=== PATIENT | male | born 1975 | race Two or more races ===

== ENCOUNTER 2019-12-18 05:27 | Inpatient (IN) | payer OTHER, SELFPAY ==
[~2019-12-18] VITALS: Ht 152.4 cm; Wt 68.5 kg
--- NOTE | 2019-12-18 05:44 | NUR ---
Patient BIB [facility] c/o body aches, sore throat, cough, and chest pain with movement. Per EMS, he was here on Sunday for the same and was given a RX which was not filled. Patient is in obvious discomfort. Respirations even and unlabored.
[2019-12-18] MEDS ORDERED: ACETAMINOPHEN 500 MG TABLET ONE (05:47)
[2019-12-18] MEDS ORDERED: PLEASE ENTER ALLERGIES MC SCH (06:00)
[2019-12-18] MEDS ORDERED: ACETAMINOPHEN 500 MG TABLET PO ONE (06:00)
[2019-12-18 06:19] LABS: RAPID INFLUENZA A Negative (Negative)
[2019-12-18 06:20] LABS: RAPID INFLUENZA B Negative (Negative)
--- NOTE | 2019-12-18 06:47 | NUR ---
Tylenol ordered per jan. Patient refused half of Tylenol. 500 mg admin
--- NOTE | 2019-12-18 06:48 | NUR ---
report received from marcos lora.
[2019-12-18] MEDS ORDERED: SODIUM CHLORIDE 0.9% 1,000ML IVBOLUS ONE ×2 (07:30→09:00)
[2019-12-18] MEDS ORDERED: CEFTRIAXONE PMX 1GM/50ML 50 ML IV ONE (07:30)
[2019-12-18] MEDS ORDERED: AZITHROMYCIN 500 MG in SODIUM CHLORIDE 0.9% 250 ML IV ONE (07:30)
--- NOTE | 2019-12-18 07:32 | NUR ---
NS INFUSING AT THIS TIME. PT TOLERATED WELL.
[2019-12-18] MEDS ORDERED: CEFTRIAXONE PMX 1GM/50ML 50 ML ONE (07:34)
[2019-12-18 07:38] LABS: MEAN CORPUSCULAR HEMOGLOBIN 30.3 pg (27.5-34.5); MEAN CORPUSCULAR HGB CONC 33.5 g/dL (33.2-36.2); MEAN CORPUSCULAR VOLUME 90.6 fL (81-97); MEAN PLATELET VOLUME 9.4 fL (7.4-10.4); PLATELET COUNT 162 x10^3/uL (130-400); RED BLOOD COUNT 4.86 x10^6/uL (4.38-5.82); RED CELL DISTRIBUTION WIDTH 12.7 % (9.4-14.8)
--- NOTE | 2019-12-18 07:40 | NUR ---
abx infusing after blood culture x 2. pt tolerated well.
[2019-12-18 07:48] LABS: ALBUMIN 2.5 g/dL (3.4-5.0); ANION GAP 10 mmol/L (5-15); CALCIUM 8.3 mg/dL (8.5-10.1); CHLORIDE 99 mmol/L (98-107); CREATININE 1.14 mg/dL (0.7-1.3)
[2019-12-18 08:06] LABS: MD YES
[2019-12-18 08:07] LABS: BAND#(MANUAL) 0.74 x10^3/uL; BANDS%(MANUAL) 5 % (0-7); LYMPHS% (MANUAL) 2 % (22-44); MONOS#(MANUAL) 0.44 x10^3/uL (0.3-2.7); MONOS% (MANUAL) 3 % (2-9); SEG#(MANUAL) 13.32 x10^3/uL (1.8-6.8); SEGS% (MANUAL) 90 % (42-75)
[2019-12-18 08:08] LABS: <RBC MORPHOLOGY> NORMAL
[2019-12-18 08:09] LABS: <PLATELET ESTIMATE> ADEQUATE; <PLT MORPHOLOGY> NORMAL PLT MORPH
[2019-12-18] MEDS ORDERED: METOCLOPRAMIDE 5 MG/ML, 2ML ONE (08:09)
[2019-12-18] MEDS ORDERED: FAMOTIDINE 20 MG/2 ML ONE (08:10)
--- NOTE | 2019-12-18 08:59 | NUR ---
2nd abx and 2l ns bolus infusing at this time. pt tolerated well. hospitalist at bedside at this time.
[2019-12-18] MEDS: SODIUM CHLORIDE 0.9% 1,000 ML IV SCH ×3 (09:30→22:32)
--- NOTE | 2019-12-18 09:46 | NUR ---
bedside commode at bedside per pt's request.
--- NOTE | 2019-12-18 10:09 | NUR ---
pt's friend Bandar [phone]
--- NOTE | 2019-12-18 10:15 | NUR ---
report given to trisha lora. all questions answered.
[2019-12-18] MEDS ORDERED: AZITHROMYCIN 500 MG TABLET ONE (10:33)
--- NOTE | 2019-12-18 10:54 | NUR ---
central line cart at bedside.edmd notified.
--- NOTE | 2019-12-18 10:57 | NUR ---
ns 150ml/hr infusing at this time. pt tolerated well. edmd at bedside to start central line.
--- NOTE | 2019-12-18 11:06 | NUR ---
central line placed by edmd. pt tolerated well.
--- NOTE | 2019-12-18 11:40 | NUR ---
CENTRAL LINE CONCENT FORM/PAPERWORKS GIVEN TO EDMD AND COIL CUTTER AT THIS TIME.
[2019-12-18] MEDS ORDERED: ENOXAPARIN 40 MG/0.4 ML ONE (11:42)
[2019-12-18] MEDS: ENOXAPARIN 40 MG/0.4 ML SQ SCH (11:44)
--- NOTE | 2019-12-18 11:45 | NUR ---
pt medicated per emar. pt tolerated well.
--- NOTE | 2019-12-18 12:30 | NUR ---
Lunch break RN: Urinal emptied, 1000cc light yellow urine output. Pt resting w/ eyes closed, awakens to V, requests & given po water.
--- NOTE | 2019-12-18 12:52 | NUR ---
this rn called for report but they're busy at this time and they are not able to take this pt at this time. throughput rn notified.
--- NOTE | 2019-12-18 13:44 | NUR ---
PT'S SLEEPING IN [facility]. RESPS EVEN AND UNLABORED. ALL MONITORS IN PLACE. CALL LIGHT WITHIN REACH. URINAL AT BEDSIDE.
--- NOTE | 2019-12-18 14:07 | NUR ---
pt resting in [facility]. pt's aox4. resps even and unlabored. all monitors in place. call light within reach. nsr on clinical research monitor rate 80's at this time.
--- NOTE | 2019-12-18 14:11 | NUR ---
PT'S BP 94/58(MAP 68) AT THIS TIME. EDMD NOTIFIED AND STATES"IF PT'S MAP IS BELOW 65, THEN PT NEEDS PRESSOR." WILL CONTINUE TO MONITOR.
--- NOTE | 2019-12-18 15:01 | NUR ---
report given to vincent lora. all questions answered.
[2019-12-18] MEDS ORDERED: NOREPINEPHRINE 8 MG in SODIUM CHLORIDE 0.9% 242 ML IV PRN (18:30)
[2019-12-19] MEDS: SODIUM CHLORIDE 0.9% 1,000 ML IV SCH ×3 (05:16→20:14)
[2019-12-19 05:28] LABS: CHLORIDE 110 mmol/L (98-107)
[2019-12-19 05:29] LABS: MEAN CORPUSCULAR HEMOGLOBIN 30.1 pg (27.5-34.5); MEAN CORPUSCULAR HGB CONC 33.7 g/dL (33.2-36.2); MEAN CORPUSCULAR VOLUME 89.3 fL (81-97); MEAN PLATELET VOLUME 9.6 fL (7.4-10.4); PLATELET COUNT 178 x10^3/uL (130-400); RED BLOOD COUNT 4.11 x10^6/uL (4.38-5.82); RED CELL DISTRIBUTION WIDTH 13.1 % (9.4-14.8)
[2019-12-19 05:33] LABS: ANION GAP 8 mmol/L (5-15); CALCIUM 7.4 mg/dL (8.5-10.1); CREATININE 0.62 mg/dL (0.7-1.3)
[2019-12-19 05:47] LABS: BASOPHILS # (AUTO) 0.02 x10^3/uL (0-0.1); BASOPHILS % (AUTO) 0 % (0-1); EOSINOPHILS # (AUTO) 0.03 x10^3/uL (0-0.4); EOSINOPHILS % (AUTO) 0 % (1-7); LYMPHOCYTES # (AUTO) 0.68 x10^3/uL (1-3.4); LYMPHOCYTES % (AUTO) 6 % (22-44); MD SCAN; MONOCYTES # (AUTO) 0.63 x10^3/uL (0.2-0.8); MONOCYTES % (AUTO) 6 % (2-9); NEUTROPHILS # (AUTO) 9.83 x10^3/uL (1.8-6.8); NEUTROPHILS % (AUTO) 88 % (42-75)
[2019-12-19] MEDS: ENOXAPARIN 40 MG/0.4 ML SQ SCH (08:48)
[2019-12-19] MEDS: ACETAMINOPHEN 325 MG TABLET PO PRN (08:48)
[2019-12-19] MEDS: AZITHROMYCIN 500 MG TABLET PO SCH (08:48)
[2019-12-19] MEDS: CEFTRIAXONE PMX 2GM/50ML 50 ML IV SCH (08:51)
[2019-12-20] MEDS: SODIUM CHLORIDE 0.9% 1,000 ML IV SCH ×3 (02:54→16:22)
[2019-12-20] MEDS: AZITHROMYCIN 500 MG TABLET PO SCH (08:31)
[2019-12-20] MEDS: ENOXAPARIN 40 MG/0.4 ML SQ SCH (08:32)
[2019-12-20] MEDS: CEFTRIAXONE PMX 2GM/50ML 50 ML IV SCH (08:32)
[2019-12-20] MEDS: LACTOBACILLUS CHEW TABLET PO SCH ×2 (11:55→16:22)
[2019-12-20 15:12] VITALS: BP 118/72
[2019-12-20 19:25] VITALS: BP 113/67
[2019-12-20] MEDS: BENZONATATE 100 MG CAPSULE PO SCH (21:04)
[2019-12-21 00:51] VITALS: BP 115/86
[2019-12-21] MEDS: SODIUM CHLORIDE 0.9% 1,000 ML IV SCH (01:23)
[2019-12-21 05:02] LABS: BASOPHILS # (AUTO) 0.04 x10^3/uL (0-0.1); BASOPHILS % (AUTO) 0 % (0-1); EOSINOPHILS # (AUTO) 0.16 x10^3/uL (0-0.4); EOSINOPHILS % (AUTO) 2 % (1-7); LYMPHOCYTES # (AUTO) 1.18 x10^3/uL (1-3.4); LYMPHOCYTES % (AUTO) 12 % (22-44); MD NO; MEAN CORPUSCULAR HEMOGLOBIN 30.5 pg (27.5-34.5); MEAN CORPUSCULAR VOLUME 89.6 fL (81-97); MEAN PLATELET VOLUME 8.4 fL (7.4-10.4); MONOCYTES # (AUTO) 0.97 x10^3/uL (0.2-0.8); MONOCYTES % (AUTO) 10 % (2-9); NEUTROPHILS # (AUTO) 7.35 x10^3/uL (1.8-6.8); NEUTROPHILS % (AUTO) 76 % (42-75); PLATELET COUNT 241 x10^3/uL (130-400); RED BLOOD COUNT 4.46 x10^6/uL (4.38-5.82); RED CELL DISTRIBUTION WIDTH 13.1 % (9.4-14.8)
[2019-12-21 05:09] LABS: ALANINE AMINOTRANSFERASE 46 U/L (12-78); ANION GAP 8 mmol/L (5-15); CALCIUM 8.2 mg/dL (8.5-10.1); CHLORIDE 110 mmol/L (98-107); CREATININE 0.63 mg/dL (0.7-1.3)
[2019-12-21 05:12] LABS: ALKALINE PHOSPHATASE 93 U/L (45-117); BILIRUBIN,TOTAL 0.4 mg/dL (0.2-1.0); TOTAL PROTEIN 6.2 g/dL (6.4-8.2)
[2019-12-21] MEDS: BENZONATATE 100 MG CAPSULE PO SCH ×3 (07:23→20:21)
[2019-12-21] MEDS: CEFTRIAXONE PMX 2GM/50ML 50 ML IV SCH (07:23)
[2019-12-21] MEDS: LACTOBACILLUS CHEW TABLET PO SCH ×3 (07:23→16:22)
[2019-12-21] MEDS: ENOXAPARIN 40 MG/0.4 ML SQ SCH (07:24)
[2019-12-21 07:25] VITALS: BP 97/63
[2019-12-21] MEDS: ACETAMINOPHEN 325 MG TABLET PO PRN (07:28)
[2019-12-21 09:07] VITALS: BP 109/69
[2019-12-21] MEDS ORDERED: GUAIFENESIN/DM 100-10MG, 5ML UDC PO PRN (15:00)
[2019-12-21 19:24] VITALS: BP 137/89
[2019-12-22 07:13] VITALS: BP 104/66
[2019-12-22] MEDS: LACTOBACILLUS CHEW TABLET PO SCH ×2 (09:36→11:53)
[2019-12-22] MEDS: BENZONATATE 100 MG CAPSULE PO SCH (09:36)
[2019-12-22] MEDS: CEFTRIAXONE PMX 2GM/50ML 50 ML IV SCH (09:37)
[2019-12-22] MEDS: ENOXAPARIN 40 MG/0.4 ML SQ SCH (09:37)
[2019-12-22] MEDS ORDERED: BENZ-17 PO (11:29)
[2019-12-22] MEDS ORDERED: AMOX1TAB12 PO (11:29)
[2019-12-22] MEDS ORDERED: AMOXICILLIN/CLAV 875-125MG TABLET PO SCH (11:30)
[2019-12-22 12:40] VITALS: BP 114/71
[2019-12-22] MEDS ORDERED: FLU VACC QS2019-20 36MOS UP/PF 0.5 ML IM-VACC ONE (15:00)
== END 2019-12-22 15:05 | disposition home or self-care (01) | DRG 871 ==
LOC: ED 08:41 → EDIP 08:42 → ED 08:50 → CCU 15:53 → 3N 12-20 14:00 → DCLOUNGE 12-22 14:57
PROVIDERS: ADMIT Internal Medicine Infectious Disease; ATTEND Internal Medicine
PROC: 02HV33Z Insertion of Infusion Device into Superior Vena Cava, Percutaneous Approach (ICD-10-PCS; principal; 2019-12-18)
PROC: B548ZZA Ultrasonography of Superior Vena Cava, Guidance (ICD-10-PCS; 2019-12-18)
DX: A40.3 Sepsis due to Streptococcus pneumoniae (principal); J13 Pneumonia due to Streptococcus pneumoniae; J96.90 Respiratory failure, unspecified, unspecified whether with hypoxia or hypercapnia; R65.21 Severe sepsis with septic shock; D63.8 Anemia in other chronic diseases classified elsewhere; E86.9 Volume depletion, unspecified; E88.09 Other disorders of plasma-protein metabolism, not elsewhere classified; Z59.0 Homelessness
CPT/HCPCS: 36415; 71045; 80048; 80053; 82040; 83605; 83735; 84100; 85025; 86738; 87040; 87077; 87081; 87181; 87400; 87880; 90686; 93306; 96365; 96366; 96368; 99292; G0378; J0456; J0696; J1650; J7030; J7050